=== PATIENT | male | born 1935 | race Caucasian/White ===

== ENCOUNTER → 2017-01-30 | Outpatient (REF) | payer MEDICARE ==
[2017-01-30 13:43] LABS: PERCENT SATURATION 39.1 % (19.7-37.4)
== END ==
LOC: M LAB REF 12:49
PROVIDERS: ATTEND Internal Medicine Nephrology
DX: D50.9 Iron deficiency anemia, unspecified (principal)

== ENCOUNTER 2017-12-04 08:06 | Observation (INO) | payer MEDICARE ==
[2017-12-04 08:49] LABS: BASO % 0.1 % (0.0-1.0); EOS % 0.3 % (0.0-3.0); HEMATOCRIT 26.7 % (42.0-52.0); HEMOGLOBIN 8.9 g/dl (14.0-18.0); IMMATURE GRANULOCYTE # 0.1 10^3/uL (0-0); IMMATURE GRANULOCYTE % 0.7 % (0-0); LYMPH # 1.3 10^3/uL (1.5-4.5); LYMPH % 10.5 % (24.0-44.0); MEAN CORPUSCULAR HEMOGLOBIN 33.6 pg (27.0-33.0); MEAN CORPUSCULAR HGB CONC 33.3 g/dl (32.0-36.5); MEAN CORPUSCULAR VOLUME 100.8 fl (80.0-96.0); MONO # 0.8 10^3/uL (0.0-0.8); MONO % 6.3 % (0.0-5.0); NEUTROPHILS # 10.1 10^3/uL (1.8-7.7); NEUTROPHILS % 82.1 % (36.0-66.0); PLATELET COUNT, AUTOMATED 122 10^3/uL (150-450); RED BLOOD COUNT 2.65 10^6/uL (4.30-6.10); WHITE BLOOD COUNT 12.3 10^3/uL (4.0-10.0)
[2017-12-04 09:19] LABS: INR 1.64; PROTHROMBIN TIME 19.9 SECONDS (12.4-14.5)
[2017-12-04 09:51] LABS: ALBUMIN 2.9 GM/DL (3.2-5.2); ALBUMIN/GLOBULIN RATIO 1.32 (1.00-1.93); ALKALINE PHOSPHATASE 63 U/L (45-117); ALT/SGPT 19 U/L (12-78); ANION GAP 7 MEQ/L (8-16); AST/SGOT 10 U/L (7-37); BILIRUBIN,TOTAL 0.7 MG/DL (0.2-1.0); BLOOD UREA NITROGEN 49 MG/DL (7-18); CALCIUM LEVEL 8.3 MG/DL (8.8-10.2); CARBON DIOXIDE LEVEL 30 MEQ/L (21-32); CHLORIDE LEVEL 107 MEQ/L (98-107); CREATININE FOR GFR 1.92 MG/DL (0.70-1.30); GLOMERULAR FILTRATION RATE 35.9 (>35); GLUCOSE, FASTING 105 MG/DL (83-110); POTASSIUM SERUM 4.1 MEQ/L (3.5-5.1); SODIUM LEVEL 144 MEQ/L (136-145); TOTAL PROTEIN 5.1 GM/DL (6.4-8.2)
[2017-12-04] MEDS ORDERED: ACETAMINOPHEN TAB 650MG DOSE (2X325MG) PO (13:30)
[2017-12-04] MEDS: predniSONE 20 MG TAB PO (14:14)
[2017-12-04] MEDS: SIMVASTATIN 20 MG TAB PO (14:15)
[2017-12-04] MEDS: FUROSEMIDE 40 MG TAB PO (14:15)
[2017-12-04] MEDS: VITAMIN D 1,000 INTERNATIONAL UNITS TABLET PO (14:15)
[2017-12-04] MEDS: CARVedilol 12.5 MG TAB PO ×2 (14:15→20:08)
[2017-12-04 17:03] LABS: ERYTHROCYTE SEDIMENTATION RATE 41 mm/hr (0-20)
[2017-12-04] MEDS: PANTOPRAZOLE 40MG TAB (PROTONIX) PO (17:57)
[2017-12-05 07:12] LABS: BASO % 0.1 % (0.0-1.0); HEMATOCRIT 27.3 % (42.0-52.0); IMMATURE GRANULOCYTE # 0.1 10^3/uL (0-0); IMMATURE GRANULOCYTE % 0.6 % (0-0); LYMPH # 0.7 10^3/uL (1.5-4.5); LYMPH % 5.7 % (24.0-44.0); MEAN CORPUSCULAR HEMOGLOBIN 33.6 pg (27.0-33.0); MEAN CORPUSCULAR VOLUME 101.9 fl (80.0-96.0); MONO # 0.5 10^3/uL (0.0-0.8); MONO % 3.9 % (0.0-5.0); NEUTROPHILS # 11.4 10^3/uL (1.8-7.7); NEUTROPHILS % 89.7 % (36.0-66.0); PLATELET COUNT, AUTOMATED 127 10^3/uL (150-450); RED BLOOD COUNT 2.68 10^6/uL (4.30-6.10); RED CELL DISTRIBUTION WIDTH 14.4 % (11.5-14.5); WHITE BLOOD COUNT 12.7 10^3/uL (4.0-10.0)
[2017-12-05 07:41] LABS: ALBUMIN 2.9 GM/DL (3.2-5.2); ALBUMIN/GLOBULIN RATIO 1.07 (1.00-1.93); ALKALINE PHOSPHATASE 48 U/L (45-117); ALT/SGPT 19 U/L (12-78); ANION GAP 6 MEQ/L (8-16); AST/SGOT 9 U/L (7-37); BILIRUBIN,TOTAL 0.8 MG/DL (0.2-1.0); BLOOD UREA NITROGEN 45 MG/DL (7-18); CALCIUM LEVEL 8.3 MG/DL (8.8-10.2); CARBON DIOXIDE LEVEL 31 MEQ/L (21-32); CHLORIDE LEVEL 106 MEQ/L (98-107); CREATININE FOR GFR 1.81 MG/DL (0.70-1.30); GLOMERULAR FILTRATION RATE 38.4 (>35); GLUCOSE, FASTING 136 MG/DL (83-110); POTASSIUM SERUM 4.7 MEQ/L (3.5-5.1); SODIUM LEVEL 143 MEQ/L (136-145); TOTAL PROTEIN 5.6 GM/DL (6.4-8.2)
[2017-12-05 08:28] LABS: ERYTHROCYTE SEDIMENTATION RATE 54 mm/hr (0-20)
[2017-12-05] MEDS: VITAMIN D 1,000 INTERNATIONAL UNITS TABLET PO (08:37)
[2017-12-05] MEDS: SIMVASTATIN 20 MG TAB PO (08:38)
[2017-12-05] MEDS: predniSONE 20 MG TAB PO (08:38)
[2017-12-05] MEDS: CARVedilol 12.5 MG TAB PO (08:38)
[2017-12-05] MEDS: FUROSEMIDE 40 MG TAB PO (08:38)
== END 2017-12-05 12:42 | disposition home or self-care (01) ==
LOC: M ED 08:06 → M ED INP 15:32 → M MS5PR 17:10
DX: M62.89 Other specified disorders of muscle (principal); R23.3 Spontaneous ecchymoses; M79.89 Other specified soft tissue disorders; D64.9 Anemia, unspecified; I13.10 Hypertensive heart and chronic kidney disease without heart failure, with stage 1 through stage 4 chronic kidney disease, or unspecified chronic kidney disease; I25.10 Atherosclerotic heart disease of native coronary artery without angina pectoris; I50.9 Heart failure, unspecified; I48.2 Chronic atrial fibrillation; E78.5 Hyperlipidemia, unspecified; M31.6 Other giant cell arteritis; I87.2 Venous insufficiency (chronic) (peripheral); H54.62 Unqualified visual loss, left eye, normal vision right eye; K21.9 Gastro-esophageal reflux disease without esophagitis; N18.3 Chronic kidney disease, stage 3 (moderate); Z95.1 Presence of aortocoronary bypass graft; Z95.0 Presence of cardiac pacemaker; Z87.891 Personal history of nicotine dependence; Z79.899 Other long term (current) drug therapy; Z79.01 Long term (current) use of anticoagulants; Z79.52 Long term (current) use of systemic steroids
CPT/HCPCS: 93971

== ENCOUNTER → 2018-01-22 | Outpatient (REF) | payer MEDICARE | LOC: M LAB REF 10:19 | DX: N18.6 End stage renal disease (principal) ==

== ENCOUNTER 2020-06-15 13:42 | Day surgery (SDC) | payer MEDICARE ==
[~2020-06-15 13:42] MED LIST: AMLO1TAB24; CALC1CAP31; CALTTAB5 PO; CARV25TA; CARV25TA PO; FURO40TA2; FURO40TA2 PO; PANT40TA29; PANT40TA29 PO; PRED20TA; PRED20TA PO; ROCA0.25 PO; SIMV20TA22; SIMV20TA22 PO; VITA100066 PO; VITA200016 PO; XARE15TA; XARE15TA PO
[2020-06-15] MEDS ORDERED: FEBU40TA4 PO (14:14)
[2020-06-15] MEDS ORDERED: B-12100010 PO (14:14)
[2020-06-15] MEDS ORDERED: PROL60SO SC (14:14)
[2020-06-15] MEDS ORDERED: ELIQ2.5T PO (14:14)
[2020-06-15] MEDS ORDERED: CALTTAB6 PO (14:14)
[2020-06-15] MEDS ORDERED: ceFAZolin SOD 2 GM in IV 1 EA IV ONE (14:30)
[2020-06-15] MEDS ORDERED: LR 1,000 ML IV SCH (14:30)
[2020-06-15 15:06] LABS: HEMATOCRIT 27.9 % (42.0-52.0); HEMOGLOBIN 9.3 g/dl (13.5-17.5); MEAN CORPUSCULAR HEMOGLOBIN 33.8 pg (27.0-33.0); MEAN CORPUSCULAR HGB CONC 33.3 g/dl (32.0-36.5); MEAN CORPUSCULAR VOLUME 101.5 fl (80.0-96.0); PLATELET COUNT, AUTOMATED 180 10^3/uL (150-450); RED BLOOD COUNT 2.75 10^6/uL (4.30-6.10); WHITE BLOOD COUNT 5.6 10^3/uL (4.0-10.0)
--- NOTE | 2020-06-15 15:12 | ECGEPIP ---
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 Slower rate but otherwise unchanged from 12/04/17. Electronically Signed on 06-15-2020 15:12:10 EDT by Dionisio Elliott
[2020-06-15] MEDS ORDERED: LIDOCAINE 1% SDV 30ML VIAL As Ordered ONE (15:29)
[2020-06-15] MEDS ORDERED: ISOVUE-300 61% 50ML VIAL As Ordered ONE (15:30)
[2020-06-15 15:40] LABS: CALCIUM LEVEL 8.9 MG/DL (8.8-10.2); CREATININE FOR GFR 2.31 MG/DL (0.70-1.30); GLOMERULAR FILTRATION RATE 28.8 (>35); POTASSIUM SERUM 4.8 MEQ/L (3.5-5.1)
[2020-06-15 15:41] LABS: ALBUMIN 3.8 GM/DL (3.2-5.2); PHOSPHORUS LEVEL 2.8 MG/DL (2.5-4.9)
[2020-06-15] MEDS ORDERED: fentaNYL 100 MCG/2 ML INJECTION (J3010) As Ordered ONE (16:46)
[2020-06-15] MEDS ORDERED: propofoL 500 MG/50 ML VIAL As Ordered ONE (16:46)
[2020-06-15] MEDS ORDERED: ONDANSETRON 4MG/2ML VIAL As Ordered ONE (16:46)
[2020-06-15] MEDS ORDERED: MIDAZOLAM INJ 2MG/2ML VIAL (J2250 PER 1MG) As Ordered ONE (16:47)
[2020-06-15] MEDS ORDERED: BACITRACIN PWD 50,000 UNITS VIAL As Ordered ONE (17:23)
[2020-06-15 18:35] VITALS: BP 124/81
--- NOTE | 2020-06-15 20:22 | RO ---
DATE OF PROCEDURE: 06/15/2020 PREOPERATIVE DIAGNOSES: 1. Pacemaker battery depletion. 2. High-grade atrioventricular (AV) block. 3. Chronic atrial flutter. POSTOPERATIVE DIAGNOSES: 1. Pacemaker battery depletion. 2. High-grade atrioventricular (AV) block. 3. Chronic atrial flutter. PROCEDURES: 1. Explantation of depleted dual-chamber pulse generator battery. 2. Testing of old atrial and ventricular pacing leads. 3. Attempted cardioversion of atrial flutter using atrial overdrive stimulation/pacing. 4. Capping off of old atrial pacing lead. 5. Implantation of permanent single-chamber pulse generator. SURGEON/IMPLANTING LAUNDRY MACHINE OPERATOR: Dr. Dionisio Elliott COMMUNICATIONS ADMINISTRATOR: ANESTHESIA: Monitored local anesthesia. ANESTHESIOLOGIST: Dr. Greenberg CLINICAL SUMMARY: This 85-year-old , father of two grown children, resident of [place], [place], has been followed by Dr. Jensen for multiple medical problems, including chronic hypertension and coronary artery disease, status post coronary artery bypass graft (CABG), complicated by abnormal EKG, paroxysmal atrial flutter/fibrillation - now chronic atrial flutter and heart failure with high-grade AV block. Permanent dual-chamber pacemaker implanted September 20, 2010. Has been followed on a regular basis by Dr. Jensen and June 08, 2020 was found to have reached elective replacement indicator. He was referred to our cardiology pacer service for battery replacement. At this point, he is relatively sedentary, his daughter helps with house cleaning and shopping. Effort limitation is shortness of breath. Denies any recent chest pain, palpitations, dizziness or fall. Has been free of systemic thromboembolic event or hemorrhagic complication in the past few years on his current Xarelto therapy. On examination, he is a pleasant elderly male of medium body build. He lay comfortably on the stretcher. Heart rate 60 beats per minute (bpm) and regular, blood pressure 166/76 supine, respiratory rate 16, O2 saturation 99% on room air. Afebrile. Weight 187 pounds, height 6 feet. Slight pallor but no cyanosis. Normal oral moisture. Trachea midline. Neck veins did not appear to be elevated at this time. Slightly increased anteroposterior chest diameter with well- healed sternotomy incision and left lateral subclavian pacemaker incision. Fairly good air entry over both lung zuniga with no inspiratory rales. Slight prolongation of expiration but no audible wheeze. Apical impulse was not palpable. Heart sounds were somewhat distant. No audible gallop or murmur. Normal carotid upstrokes and volume with no bruits. Upper extremity pulses were symmetrical and normal. Soft, nontender abdomen. Has 1 mm pitting edema one-third up both lower legs. Few dilated superficial venules. Pedal pulses were palpable symmetrically. EKG: A tracing taken today shows underlying atrial flutter with consistent ventricular paced rhythm at 58 beats per minute, paced QRS complexes with left bundle branch block configuration and left axis in keeping with right ventricular apical stimulation. Slow rate but otherwise unchanged from December 04, 2017. LABORATORY DATA: Hemoglobin 9.3, macrocytic with normal MCHC. Normal white blood cell count and platelet count. Electrolytes were in balance with BUN 25, creatinine 2.3, glomerular filtration rate 28.8 (followed by Dr. Mathis), random glucose 103. Serum calcium was normal at 8.9, albumin 3.8 with pro-BNP level elevated at 3591. DESCRIPTION OF PROCEDURE: In the fasting state following Ancef 2 grams IV premedication, the patient was taken to the operating theater. Numerous skin electrodes were applied to facilitate continuous electrocardiographic monitoring. The left subclavian region was prepped and draped in the usual fashion and the skin over his old pacemaker incision was infiltrated with 1% Xylocaine. A 5 cm linear incision was made over the same site of his old pacer implant, and we carefully dissected down to his depleted pulse generator, which was explanted ([employer] model #2110, serial #[id number] originally implanted September 20, 2010). His atrial and ventricular pacing leads were then disconnected and tested individually. The right ventricular lead ([employer], model #1948/58, serial #[id number]) measurements were: Stimulation threshold 0.6V/0.4 ms/impedance 629 ohms. The R wave amplitude measured 12.5 mV. His underlying rhythm was atrial flutter with high-grade AV block and ventricular rhythm with narrow QRS complexes at 37 bpm. The atrial lead ([employer], model #1782TC/52, serial #[id number]) measurements were: Atrial flutter waves 2.4 mV lead impedance 284 ohms. In light of his underlying atrial tachyarrhythmia being atrial flutter with a very organized pattern on his intracardiac electrogram, we attempted to use atrial overdrive pacing in hopes of converting him to a sinus mechanism. Four 20-second bursts of rapid atrial pacing were attempted, including 190 millisecond cycle length, 180 millisecond cycle length twice and finally 170 millisecond cycle length only to induce atrial fibrillation. At this point, it was recognized that we were not going to be able to achieve a sinus rhythm, so his atrial lead was then capped off and placed in the pocket. His pacer pocket was thoroughly irrigated with bacitracin solution. The old ventricular pacing lead was then connected to a new single chamber pulse generator ([employer] model #DU1314, serial #[id number]) and appropriate VVI pacing was documented. The pulse generator was placed back in the pocket and secured in position with a suture through the upper right-hand corner of the epoxy header. The subcutaneous tissues were approximated using a running chromic suture, and the skin was closed using dale. No apparent complications. Estimated blood loss: Less than 5 mL. In the recovery room, we programmed his pacemaker to rate responsive with low rate of 60 and upper rate of 90 beats per minute. Auto capture function did work in the ventricle, hopefully to preserve battery longevity. Once he is alert and able to ambulate, we will allow him to be discharged home. DISCHARGE RECOMMENDATIONS AND MEDICATIONS: He was to resume his customary modest salt, low fat, low cholesterol diet. Activity was to be as tolerated with light activity of daily living with his left arm and avoiding getting his incision wet until his adle are removed in my office June 23, 2020 at 9:30 a.m.. Should he notice any abnormal erythema, swelling or discharge, we have requested that he contact our office promptly. He was to restart his prior medications: carvedilol 12.5 mg twice a day, furosemide 40 mg daily, Xarelto 15 mg daily, calcitriol 0.25 mcg tablets 5 days of the week, Protonix 40 mg daily and simvastatin 20 mg daily. [facility]
== END 2020-06-15 18:40 | disposition home or self-care (01) ==
LOC: M SDC 13:42
PROVIDERS: ATTEND Internal Medicine Cardiovascular Disease
DX: Z45.010 Encounter for checking and testing of cardiac pacemaker pulse generator [battery] (principal); I48.92 Unspecified atrial flutter; Z79.01 Long term (current) use of anticoagulants; I49.5 Sick sinus syndrome; I48.91 Unspecified atrial fibrillation; N18.9 Chronic kidney disease, unspecified; I50.9 Heart failure, unspecified; D64.9 Anemia, unspecified; Z79.899 Other long term (current) drug therapy
CPT/HCPCS: 33227; 36415; 80069; 83880; 85027; 92960; 93005; C1785; J0690; J2250; J2405; J3010; U0002

== ENCOUNTER → 2020-09-27 | Outpatient (CLI) | payer MEDICARE ==
[~2020-09-27] MED LIST changes: +B-12100010 PO; +CALTTAB6 PO; +ELIQ2.5T PO; +FEBU40TA4 PO; +PROL60SO SC
--- NOTE | 2020-09-27 14:10 | REP ---
INDICATION: DYSPNEA. COMPARISON: No comparison chest x-ray TECHNIQUE: Two views.. FINDINGS: Lungs are somewhat hyperinflated and clear. Pleural angles are sharp. Heart size is borderline. There is a bipolar pacemaker in the right heart view of the left side. Median sternotomy wires and mediastinal clips are noted indicating previous surgery. The thoracic aorta is slightly tortuous. There are degenerative changes in the thoracic spine. Pulmonary vasculature is not increased. IMPRESSION: Prior sternotomy. Borderline heart with pacemaker. Otherwise no active disease. <Electronically signed by Manav Forde > 09/27/20 [id number]
[2020-09-27 18:38] LABS: PERCENT SATURATION 43.7 % (19.7-50.0)
== END ==
LOC: M WUC 10:43
PROVIDERS: ATTEND Nurse Practitioner Family
DX: D50.9 Iron deficiency anemia, unspecified (principal); D64.9 Anemia, unspecified; D63.1 Anemia in chronic kidney disease; R06.00 Dyspnea, unspecified; Z95.0 Presence of cardiac pacemaker

== ENCOUNTER → 2020-12-15 | Outpatient (REF) | payer MEDICARE ==
[2020-12-15 18:11] LABS: PERCENT SATURATION 46.8 % (19.7-50.0)
== END ==
LOC: M LAB REF 16:40
PROVIDERS: ATTEND Nurse Practitioner Family
DX: D50.9 Iron deficiency anemia, unspecified (principal)

== ENCOUNTER → 2021-01-16 | Outpatient (REF) | payer MEDICARE | LOC: M LAB REF 16:59 | PROVIDERS: ATTEND Nurse Practitioner Family | DX: D64.9 Anemia, unspecified (principal) ==

== ENCOUNTER 2021-01-17 11:48 | Outpatient (CLI) | payer MEDICARE ==
[2021-01-17] VITALS (7 sets, daily range): BP systolic 95–166; BP diastolic 57–88
[~2021-01-17] VITALS: Ht 185.4 cm; Wt 96.8 kg
== END 2021-01-17 16:55 | disposition home or self-care (01) ==
LOC: M INFU 11:48
PROVIDERS: ATTEND Internal Medicine Nephrology
DX: D64.9 Anemia, unspecified (principal)
CPT/HCPCS: 36430; P9016

== ENCOUNTER → 2021-01-17 | Outpatient (REF) | payer MEDICARE | LOC: M LAB REF 17:04 | PROVIDERS: ATTEND Nurse Practitioner Family | DX: Z12.11 Encounter for screening for malignant neoplasm of colon (principal); D64.9 Anemia, unspecified ==

== ENCOUNTER 2021-02-11 16:18 | Emergency (ER) | payer MEDICARE ==
[~2021-02-11] VITALS: Ht 182.9 cm; Wt 93.8 kg
[2021-02-11] MEDS ORDERED: PROC20004 SC (16:38)
[2021-02-11] MEDS ORDERED: NS 1,000 ML IV SCH (16:58)
[2021-02-11 17:47] LABS: HEMATOCRIT 22.9 % (42.0-52.0); HEMOGLOBIN 7.4 g/dl (13.5-17.5); MEAN CORPUSCULAR HGB CONC 32.3 g/dl (32.0-36.5); MEAN CORPUSCULAR VOLUME 99.1 fl (80.0-96.0); RED BLOOD COUNT 2.31 10^6/uL (4.30-6.10)
--- NOTE | 2021-02-11 17:51 | REP ---
INDICATION: Altered Mental Status COMPARISON: 09/27/2020 TECHNIQUE: Portable AP view of the chest FINDINGS: The mediastinum and cardiac silhouette are stable and again demonstrate mild cardiomegaly with pacemaker, sternotomy and CABG. The lung zuniga demonstrate stable chronic changes without acute consolidation, effusion, or pneumothorax. Skeletal structures are intact. IMPRESSION: No acute cardiopulmonary process appreciated. No focal consolidation or effusion. <Electronically signed by Tristin Sotelo > 02/11/21 [id number]
[2021-02-11 18:13] LABS: PLATELET COUNT, AUTOMATED 30 10^3/uL (150-450)
[2021-02-11 18:14] LABS: WHITE BLOOD COUNT 41.9 10^3/uL (4.0-10.0)
[2021-02-11 18:18] LABS: ALBUMIN 3.6 GM/DL (3.2-5.2); BILIRUBIN,DIRECT 0.2 MG/DL (0.0-0.2); BILIRUBIN,TOTAL 0.7 MG/DL (0.2-1.0); CK-MB VALUE MASS 1.3 NG/ML (<3.6); CREATININE FOR GFR 2.38 MG/DL (0.70-1.30); GLOMERULAR FILTRATION RATE 27.8 (>35); MB/CK RELATIVE INDEX 3.1 (< OR =4); POTASSIUM SERUM 4.5 MEQ/L (3.5-5.1); THYROID STIMULATING HORMONE 1.88 uIU/ML (0.358-3.740); TOTAL PROTEIN 6.7 GM/DL (6.4-8.2); TROPONIN I 0.02 NG/ML (< 0.10)
[2021-02-11 18:26] LABS: BLAST CELLS 85 % (0-0); NEUTROPHILS 6 % (28-66)
[2021-02-11 18:27] LABS: ATYPICAL LYMPH 2 % (0-5); LYMPHOCYTES 7 % (16-44)
[2021-02-11 18:30] LABS: PLATELET ESTIMATE MARKED DECREASE (NORMAL)
[2021-02-11 18:36] LABS: HYPOCHROMASIA 1+; POIKILOCYTOSIS 1+
[2021-02-11 18:37] LABS: ANISOCYTOSIS 4+
[2021-02-11 19:33] LABS: RSV AMPLIFICATION NEGATIVE (NEGATIVE)
[2021-02-11 20:00] VITALS: BP 154/69
--- NOTE | 2021-02-12 07:12 | ECGEPIP ---
[facility] - ED Test Date: 2021-02-11 Pat Name: JIM BOBBY Department: Room: - Gender: Male [employer] Hostess: FREDY : 1935 Requested By: Rabia Santos Order Number: [id number] Reading MD: Harlan Davies Measurements Intervals [place] Rate: 59 P: 117 [place]: QRS: -84 QRSD: 170 T: 81 QT: 520 QTc: 514 Interpretive Statements Ventricular-paced rhythm SIMILAR TO 06/15/20 Electronically Signed on 02-12-2021 7:12:24 EDT by Harlan Davies
== END 2021-02-11 20:42 | disposition short-term general hospital (02) ==
LOC: M ED 16:18
DX: C92.00 Acute myeloblastic leukemia, not having achieved remission (principal); R06.02 Shortness of breath; I48.91 Unspecified atrial fibrillation; I10 Essential (primary) hypertension; E78.5 Hyperlipidemia, unspecified; Z95.0 Presence of cardiac pacemaker; Z87.891 Personal history of nicotine dependence; Z79.01 Long term (current) use of anticoagulants; Z79.899 Other long term (current) drug therapy